=== PATIENT | male | born 1955 | race Caucasian/White ===

== ENCOUNTER → 2018-02-14 | Outpatient (CLI) | payer OTHER ==
[~2018-02-14] MED LIST: ALTACE5 MG PO; CELLCEPT250 MG PO; CYANOCOBALAM1000 MCG PO; ENVARSUS XR1 MG PO; LEXAPRO10 MG PO; LIPITOR40 MG PO; LO-DOSE ASPIRIN81 M1 PO; NORVASC2.5 MG PO; NORVASC5 MG PO; ONCE DAILY1 EACH PO; PRILOSEC20 MG PO
== END | disposition home or self-care (01) ==
LOC: CDC 09:54
DX: Z01.810 Encounter for preprocedural cardiovascular examination (principal); I44.0 Atrioventricular block, first degree; R94.31 Abnormal electrocardiogram [ECG] [EKG]
CPT/HCPCS: 93000

== ENCOUNTER 2018-02-19 07:52 | Day surgery (SDC) | payer OTHER ==
[~2018-02-19] VITALS: Ht 168.9 cm; Wt 56.7 kg
[2018-02-19 08:31] VITALS: BP 104/67
[2018-02-19] MEDS ORDERED: HYDROCODON-ACE1 EAC7 PO (11:11)
[2018-02-19 12:50] VITALS: BP 132/68
[2018-02-19 14:19] VITALS: BP 124/79
== END 2018-02-19 14:26 | disposition home or self-care (01) ==
LOC: SDC 07:52
PROC: 0YQ64ZZ Repair Left Inguinal Region, Percutaneous Endoscopic Approach (ICD-10-PCS; principal; 2018-02-19)
DX: K40.90 Unilateral inguinal hernia, without obstruction or gangrene, not specified as recurrent (principal); D89.9 Disorder involving the immune mechanism, unspecified; I12.9 Hypertensive chronic kidney disease with stage 1 through stage 4 chronic kidney disease, or unspecified chronic kidney disease; N18.9 Chronic kidney disease, unspecified; Z94.0 Kidney transplant status; R73.03 Prediabetes; K21.9 Gastro-esophageal reflux disease without esophagitis; E78.5 Hyperlipidemia, unspecified; R94.31 Abnormal electrocardiogram [ECG] [EKG]; Z79.82 Long term (current) use of aspirin
CPT/HCPCS: C1781; J0131; J0690; J1170; J2250; J2405; J3010; S0020